=== PATIENT | female | born 1955 | race Caucasian/White ===

== ENCOUNTER 2024-02-18 20:16 | Emergency (ER) | payer MEDICARE ==
[2024-02-18] MEDS ORDERED: Lidocaine 1% w/Epinephrine 1:100K 20 ML VIAL ONE (21:02)
[2024-02-18] MEDS ORDERED: Boostrix 0.5 ML (Tdap) VIAL (>/=7 yrs of age) ONE (21:02)
[2024-02-18] MEDS ORDERED: Bacitracin 1 PK ONE (21:47)
== END 2024-02-18 22:07 | disposition home or self-care (01) ==
LOC: ERS 20:16
DX: S01.01XA Laceration without foreign body of scalp, initial encounter (principal); Z23 Encounter for immunization; W01.198A Fall on same level from slipping, tripping and stumbling with subsequent striking against other object, initial encounter; Z91.81 History of falling; Y93.01 Activity, walking, marching and hiking
CPT/HCPCS: 12014; 90471; 90715